=== PATIENT | male | born 1970 | race Caucasian/White ===

== ENCOUNTER 2020-01-30 06:55 | Emergency (ER) | payer OTHER ==
[~2020-01-30] VITALS: Ht 172.7 cm; Wt 79.4 kg
[2020-01-30 07:16] VITALS: BP 138/88
--- NOTE | 2020-01-30 08:01 | NUR ---
Patient discharged with v/s stable. Written and verbal after care instructions given and explained. Patient alert, oriented and verbalized understanding of instructions. Ambulatory with to car. All questions addressed prior to discharge. ID band removed. Patient advised to follow up with PMD. Rx of albuterol, tessalon, and promethazine given. Patient educated on indication of medication including possible reaction and side effects. Opportunity to ask questions provided and answered. No nursing care provided in our ER.
== END 2020-01-30 08:01 | disposition home or self-care (01) ==
LOC: MED 06:55
DX: U07.1 COVID-19 (principal); J40 Bronchitis, not specified as acute or chronic
CPT/HCPCS: 99283